=== PATIENT | female | born 1940 | race Asian ===

== ENCOUNTER 2022-12-19 08:52 | Outpatient (CLI) | payer MEDICARE, OTHER ==
[~2022-12-19] VITALS: Ht 149.9 cm; Wt 58.1 kg
[~2022-12-19 08:52] MED LIST: AMLO10TA PO; DOXY150T5 PO; LACT1CAP75 PO; LEVO-65 PO; LISI20TA28 PO; LOPE-190 PO; MECL-231 PO; MELO-100 PO; METF-436 PO; MULT-1133 PO; ROSU10TA2 PO
[2022-12-19] MEDS ORDERED: metoprolol tartrate 1mg/ml inj IV PRN (09:45)
[2022-12-19] MEDS ORDERED: nitroGLYCERIN 0.4mg SUBLingual tab SL PRN (09:45)
[2022-12-19] MEDS ORDERED: aminophylline 250mg/10ml inj. IV PRN (09:45)
[2022-12-19] MEDS ORDERED: normal saline 500ml IV soln 500 ML IV ONE (09:45)
[2022-12-19] MEDS ORDERED: regadenoson 0.4mg/5ml syringe IV ONE (09:45)
[2022-12-19 10:51] VITALS: BP 125/68
[2022-12-19 11:08] VITALS: BP 150/63
[2022-12-19 11:09] VITALS: BP 134/68
[2022-12-19 11:10] VITALS: BP 131/65
[2022-12-19 11:11] VITALS: BP 124/65
[2022-12-19 11:12] VITALS: BP 129/63
[2022-12-20] VITALS (7 sets, daily range): BP systolic 121–133; BP diastolic 57–69
--- NOTE | 2022-12-20 08:15 | NUR ---
pt difficult stick, 18g midline, mid upper right arm, placed by Anna RN PICC Line nurse
[2022-12-20] MEDS ORDERED: regadenoson 0.4mg/5ml syringe IV PRN ×3 (08:35→09:00)
[2022-12-20] MEDS ORDERED: metoprolol tartrate 1mg/ml inj IV PRN ×2 (08:35)
[2022-12-20] MEDS ORDERED: nitroGLYCERIN 0.4mg SUBLingual tab SL PRN ×2 (08:35)
[2022-12-20] MEDS ORDERED: aminophylline 250mg/10ml inj. IV PRN ×2 (08:35)
--- NOTE | 2022-12-20 09:23 | NUR ---
pt plans to go to go to surgery with Dr Melendez today, pending clearance (stress test)
== END 2022-12-20 23:00 | disposition home or self-care (01) ==
LOC: RAD 08:52
PROVIDERS: ATTEND Internal Medicine Cardiovascular Disease
DX: Z01.810 Encounter for preprocedural cardiovascular examination (principal); R94.31 Abnormal electrocardiogram [ECG] [EKG]; I25.2 Old myocardial infarction; M49.86 Spondylopathy in diseases classified elsewhere, lumbar region
CPT/HCPCS: J0280; J2785; J3490; J7040; 93017

== ENCOUNTER 2023-05-16 07:00 | Outpatient (CLI) | payer MEDICARE, OTHER, MEDICAID ==
[~2023-05-16] VITALS: Ht 149.9 cm; Wt 58.1 kg
[~2023-05-16 07:00] MED LIST changes: -DOXY150T5 PO; -LEVO-65 PO; -MELO-100 PO; -ROSU10TA2 PO
[2023-05-16] MEDS ORDERED: BENZ-111 PO (11:21)
[2023-05-16] MEDS ORDERED: BISA-155 PO (11:21)
[2023-05-16] MEDS ORDERED: ALBU90AE INH (11:21)
[2023-05-16] MEDS ORDERED: FERR325T28 PO (11:21)
[2023-05-16] MEDS ORDERED: MAGN400O6 PO (11:21)
[2023-05-16] MEDS ORDERED: FURO-150 PO (11:21)
[2023-05-16] MEDS ORDERED: LOPE2CAP PO (11:21)
[2023-05-16] MEDS ORDERED: ATOR20TA PO (11:21)
[2023-05-16] MEDS ORDERED: SITA25TA3 PO (11:21)
[2023-05-16] MEDS ORDERED: PANT-47 PO (11:21)
[2023-05-16 11:42] LABS: BASOPHILS # (AUTO) 0.1 X10'3 (0-0.2); BASOPHILS % (AUTO) 0.4 % (0-1); EOSINOPHILS # (AUTO) 0.4 X10'3 (0-0.9); EOSINOPHILS % (AUTO) 2.3 % (0-6); LYMPHOCYTES # (AUTO) 2.2 X10'3 (1.1-4.8); LYMPHOCYTES % (AUTO) 11.7 % (21-51); MEAN CORPUSCULAR HEMOGLOBIN 24.5 PG (27.0-31.0); MEAN CORPUSCULAR HGB CONC 31.6 g/dL (33.0-36.5); MEAN CORPUSCULAR VOLUME 77.6 FL (78-98); MEAN PLATELET VOLUME 8.7 FL (7.4-10.4); MONOCYTES # (AUTO) 1.8 X10'3 (0-0.9); MONOCYTES % (AUTO) 9.5 % (2-12); NEUTROPHILS # (AUTO) 14.2 X10'3 (1.8-7.7); NEUTROPHILS % (AUTO) 76.1 % (42-75); PRE OP HEMATOCRIT 41.1 % (35.0-45.0); PRE OP PLATELET COUNT 392 X10'3 (140-440); RED CELL DISTRIBUTION WIDTH 16.2 % (11.5-14.5)
[2023-05-16 12:03] LABS: ALBUMIN 2.6 G/DL (3.4-5.0); ALBUMIN/GLOBULIN RATIO 0.6 (1.1-1.5); ALKALINE PHOSPHATASE 147 IU/L (46-116); BLOOD UREA NITROGEN 19 MG/DL (7-18); BUN/CREATININE RATIO 11.2 (10.0-20.0); CALCIUM 8.7 MG/DL (8.5-10.1); CHLORIDE 105 MMOL/L (99-107); PRE OP ALT 30 U/L (30-65); PRE OP ANION GAP 9 (8-16); PRE OP AST 17 U/L (10-37); PRE OP BILIRUB, TOTAL 0.4 MG/DL (0.0-1.0); PRE OP GLUCOSE 129 MG/DL (70-104); PRE OP SODIUM 139 MMOL/L (135-145); TOTAL CARBON DIOXIDE 24.6 MMOL/L (24-32); TOTAL PROTEIN 6.7 G/DL (6.4-8.2); eGFR 29 ML/MIN
[2023-05-16 14:09] LABS: C-REACTIVE PROTEIN 13.93 MG/DL (0.0-0.5)
[2023-05-16 14:53] LABS: HEMOGLOBIN A1C 6.6 % (4.5-6.2)
[2023-05-20] MEDS ORDERED: ringers solution, lacted 1,000 ML IV SCH (05:00)
[2023-05-20] MEDS ORDERED: cefazolin 2gm/D5W 100mL 100 ML IV ONE (05:30)
[2023-05-20] MEDS ORDERED: famotidine 20mg tablet PO ONE (05:30)
[2023-05-20] MEDS ORDERED: tranexamic acid 650mg tablet PO ONE (05:30)
[2023-05-20] MEDS ORDERED: vancomycin/NS 1 GM in NS 250 ML IV ONE (05:30)
== END 2023-05-16 23:00 | disposition home or self-care (01) ==
LOC: LAB 07:00 → EDSTATUS 05-20 14:30 → LAB 05-22 05:25
PROVIDERS: ATTEND Orthopaedic Surgery
DX: Z01.812 Encounter for preprocedural laboratory examination (principal); T84.59XA Infection and inflammatory reaction due to other internal joint prosthesis, initial encounter; Y83.8 Other surgical procedures as the cause of abnormal reaction of the patient, or of later complication, without mention of misadventure at the time of the procedure; Y92.89 Other specified places as the place of occurrence of the external cause
CPT/HCPCS: 36415; 80053; 83036; 85025; 85651; 86140; 87081; J0690; J3370; J7120

== ENCOUNTER 2024-08-26 06:55 | Inpatient (IN) | payer MEDICARE, OTHER, MEDICAID ==
[2024-08-21 15:14] LABS: BASOPHILS # (AUTO) 0.1 X10'3 (0-0.2); BASOPHILS % (AUTO) 0.8 % (0-1); EOSINOPHILS # (AUTO) 0.7 X10'3 (0-0.9); EOSINOPHILS % (AUTO) 7.5 % (0-6); LYMPHOCYTES # (AUTO) 2.1 X10'3 (1.1-4.8); LYMPHOCYTES % (AUTO) 21.7 % (21-51); MEAN CORPUSCULAR HEMOGLOBIN 27.1 PG (27.0-31.0); MEAN CORPUSCULAR HGB CONC 31.9 g/dL (33.0-36.5); MEAN CORPUSCULAR VOLUME 85.1 FL (78-98); MEAN PLATELET VOLUME 8.5 FL (7.4-10.4); MONOCYTES # (AUTO) 0.6 X10'3 (0-0.9); MONOCYTES % (AUTO) 6.6 % (2-12); NEUTROPHILS # (AUTO) 6.1 X10'3 (1.8-7.7); NEUTROPHILS % (AUTO) 63.4 % (42-75); PRE OP HEMATOCRIT 47.3 % (35.0-45.0); PRE OP HEMOGLOBIN 15.1 g/dL (12.0-16.0); PRE OP PLATELET COUNT 213 X10'3 (140-440); PRE OP WHITE BLOOD COUNT 9.6 10'3 (4.8-10.8); RED BLOOD COUNT 5.57 X10'6 (4.20-5.60); RED CELL DISTRIBUTION WIDTH 15.1 % (11.5-14.5)
[2024-08-21 15:27] LABS: PRE OP PROTIME 10.5 SECONDS (9.0-12.0)
[2024-08-21 15:30] LABS: ALBUMIN 3.8 G/DL (3.4-5.0); ALBUMIN/GLOBULIN RATIO 0.9 (1.1-1.5); ALKALINE PHOSPHATASE 200 IU/L (46-116); BLOOD UREA NITROGEN 16 MG/DL (7-18); BUN/CREATININE RATIO 12.3 (10.0-20.0); CALCIUM 10.1 MG/DL (8.5-10.1); CHLORIDE 106 MMOL/L (99-107); PRE OP ANION GAP 11 (8-16); PRE OP AST 48 U/L (10-37); PRE OP BILIRUB, TOTAL 0.4 MG/DL (0.0-1.0); PRE OP GLUCOSE 111 MG/DL (70-104); PRE OP SODIUM 146 MMOL/L (135-145); TOTAL PROTEIN 8.1 G/DL (6.4-8.2); eGFR 39 ML/MIN
[2024-08-21 15:31] LABS: HEMOGLOBIN A1C 5.9 % (4.5-6.2)
[2024-08-21 15:32] LABS: PRE OP ALT 98 U/L (30-65)
[~2024-08-26] VITALS: Ht 149.9 cm; Wt 65.0 kg
[2024-08-26] VITALS (28 sets, daily range): BP systolic 108–150; BP diastolic 51–76; PULSE 58–81; RESP 8–17; TEMP 97.1–98.1; O2SAT 91–100
[2024-08-26] MEDS: famotidine 20mg tablet PO ONE (05:30)
[~2024-08-26 06:55] MED LIST changes: +APIX5TAB3 PO; +ATOR20TA PO; +CELE-127 PO; +DAPA10TA PO; +FERR325T28 PO; +FURO-150 PO; -LACT1CAP75 PO; +LISI10TA27 PO; -LISI20TA28 PO; -LOPE-190 PO; -MECL-231 PO; -METF-436 PO; -MULT-1133 PO; +MULTI-VITAMIN PO; +PANT-47 PO; +POTA-192 PO; +PROBIOTIC PO; +SITA25TA3 PO; +VANC125C11 PO
[2024-08-26] MEDS: cefazolin 2gm/D5W 100mL 100 ML IV ONE (07:15)
[2024-08-26] MEDS ORDERED: fentaNYL/PF 50MCG/1 ML 2ML syringe ONE ×3 (08:49→11:16)
[2024-08-26] MEDS ORDERED: midazolam 1 mg/ML 2ml injection ONE (08:49)
[2024-08-26] MEDS ORDERED: dexamethasone sod phosphate 4mg/ml inj. ONE (08:50)
[2024-08-26] MEDS ORDERED: sevoflurane 250ml liquid IH ONE (08:50)
[2024-08-26] MEDS ORDERED: ondansetron/PF 4mg/2ml inj ONE (08:50)
[2024-08-26] MEDS ORDERED: propofol inj 20 ML IV ONE (08:50)
[2024-08-26] MEDS ORDERED: LIDOcaine 2% (20mg/ml) 5ml vial ONE (08:50)
[2024-08-26] MEDS ORDERED: acetaminophen 1,000mg/100ml IV 100 ML IV ONE (08:51)
[2024-08-26] MEDS ORDERED: ipratropium/albuterol 3ml nebule IH PRN (09:40)
[2024-08-26] MEDS ORDERED: morphine 4 MG/ML inj SYRINge IV PRN (09:40)
[2024-08-26] MEDS ORDERED: hydrALAZINE 20mg/ml inj. IV PRN (09:40)
[2024-08-26] MEDS ORDERED: ondansetron/PF 4mg/2ml inj IV PRN ×2 (09:40→12:50)
[2024-08-26] MEDS ORDERED: fentaNYL/PF 50MCG/1 ML 2ML syringe IV PRN ×2 (09:40)
[2024-08-26] MEDS ORDERED: morphine 2 MG/ML inj. syringe IV PRN (09:40)
[2024-08-26] MEDS: methylene blue (5mg/ml) 50mg/10ml ampul IV ONE (12:33)
[2024-08-26] MEDS: BUPIVACAINE liposomal/PF 13.3 MG/ML vial IM ONE ×2 (12:33)
[2024-08-26] MEDS: BUPIVAcaine/PF 5 mg/ml 10ml ONE (12:33)
[2024-08-26] MEDS: BUPIVAcaine 2.5mg/ml inj 50ml vial (contains preservative) ONE (12:33)
[2024-08-26] MEDS: ringers solution, lacted 1,000 ML IV SCH ×3 (14:00→14:08)
[2024-08-26] MEDS ORDERED: DEXTROSE 15 GM of carb/4 tabs (each vial/BOTTLE has 4 tablets) PO PRN ×2 (15:00)
[2024-08-26] MEDS ORDERED: dextrose 50%-water 50ml dispensing syringe IV PRN ×2 (15:00)
[2024-08-26] MEDS ORDERED: glucagon, human recombinant 1mg kit SUBCUT PRN (15:00)
[2024-08-26] MEDS: ceFAZolin/D5W- 1GM premix 50 ML IV SCH (16:30)
[2024-08-26] MEDS: INSULIN LISPRO 100 UNIT/ML INSULN.PEN MULTI-DOSE SQ SCH (19:47)
[2024-08-26] MEDS: atorvastatin 20mg tablet PO SCH (21:07)
[2024-08-26] MEDS: HYDROcodone/acetaminophen 5mg/325mg tablet PO PRN (21:09)
[2024-08-26] MEDS: insulin glargine (Lantus) pen - multi-dose SQ SCH (21:23)
[2024-08-27] VITALS (8 sets, daily range): BP systolic 114–169; BP diastolic 47–79; PULSE 61–86; RESP 14–18; TEMP 97–98.6; O2SAT 90–99
[2024-08-27] MEDS: DAPAGLIFLOZIN 10MG TABLET PO SCH (11:39)
[2024-08-27] MEDS: linagliptin 5mg tablet PO SCH (11:40)
[2024-08-27] MEDS: lisinopril 10 MG tablet PO SCH (11:51)
[2024-08-27] MEDS: furosemide 20MG tablet PO SCH (11:51)
[2024-08-27] MEDS: amLODIPine 5mg tablet PO SCH (11:51)
[2024-08-27 14:08] LABS: ALBUMIN 2.2 G/DL (3.4-5.0); ANION GAP 8 (8-16); BLOOD UREA NITROGEN 18 MG/DL (7-18); BUN/CREATININE RATIO 15.9 (10.0-20.0); CALCIUM 8.7 MG/DL (8.5-10.1); CHLORIDE 108 MMOL/L (99-107); CREATININE 1.13 MG/DL (0.40-0.90); GLUCOSE 172 MG/DL (70-104); SODIUM 138 MMOL/L (135-145); TOTAL CARBON DIOXIDE 21.8 MMOL/L (24-32); eCRCL 26 ML/MIN; eGFR 46 ML/MIN
[2024-08-28] VITALS (9 sets, daily range): BP systolic 114–135; BP diastolic 52–86; PULSE 73–99; RESP 12–20; TEMP 97.6–99.3; O2SAT 89–95
[2024-08-28 04:36] LABS: BASOPHILS # (AUTO) 0.1 X10'3 (0-0.2); BASOPHILS % (AUTO) 0.5 % (0-1); EOSINOPHILS # (AUTO) 0.1 X10'3 (0-0.9); EOSINOPHILS % (AUTO) 0.8 % (0-6); HEMATOCRIT 29.6 % (35.0-45.0); HEMOGLOBIN 9.4 g/dl (12.0-16.0); LYMPHOCYTES # (AUTO) 1.8 X10'3 (1.1-4.8); LYMPHOCYTES % (AUTO) 16.6 % (21-51); MEAN CORPUSCULAR HEMOGLOBIN 27.1 PG (27.0-31.0); MEAN CORPUSCULAR HGB CONC 31.7 g/dL (33.0-36.5); MEAN CORPUSCULAR VOLUME 85.3 FL (78-98); MEAN PLATELET VOLUME 8.5 FL (7.4-10.4); MONOCYTES # (AUTO) 1.1 X10'3 (0-0.9); MONOCYTES % (AUTO) 10.1 % (2-12); NEUTROPHILS # (AUTO) 7.8 X10'3 (1.8-7.7); PLATELET COUNT 194 X10'3 (140-440); RED BLOOD COUNT 3.47 X10'6 (4.20-5.60); RED CELL DISTRIBUTION WIDTH 15.5 % (11.5-14.5); WHITE BLOOD COUNT 10.8 X10'3 (4.5-11.0)
[2024-08-28 09:21] LABS: ALBUMIN 2.5 G/DL (3.4-5.0); ANION GAP 6 (8-16); BLOOD UREA NITROGEN 21 MG/DL (7-18); BUN/CREATININE RATIO 16.9 (10.0-20.0); CALCIUM 8.6 MG/DL (8.5-10.1); CHLORIDE 107 MMOL/L (99-107); CREATININE 1.24 MG/DL (0.40-0.90); GLUCOSE 185 MG/DL (70-104); POTASSIUM 3.6 MMOL/L (3.5-5.1); SODIUM 141 MMOL/L (135-145); TOTAL CARBON DIOXIDE 27.9 MMOL/L (24-32); eCRCL 23 ML/MIN; eGFR 41 ML/MIN
[2024-08-28] MEDS: apixaban 5mg tablet PO SCH (09:52)
[2024-08-29 06:32] LABS: BASOPHILS # (AUTO) 0.1 X10'3 (0-0.2); BASOPHILS % (AUTO) 0.7 % (0-1); EOSINOPHILS # (AUTO) 0.4 X10'3 (0-0.9); EOSINOPHILS % (AUTO) 4.5 % (0-6); HEMATOCRIT 30.9 % (35.0-45.0); HEMOGLOBIN 9.9 g/dl (12.0-16.0); LYMPHOCYTES # (AUTO) 2.2 X10'3 (1.1-4.8); LYMPHOCYTES % (AUTO) 24.3 % (21-51); MEAN CORPUSCULAR HEMOGLOBIN 27.2 PG (27.0-31.0); MEAN CORPUSCULAR HGB CONC 32.1 g/dL (33.0-36.5); MEAN CORPUSCULAR VOLUME 84.8 FL (78-98); MEAN PLATELET VOLUME 8.7 FL (7.4-10.4); MONOCYTES # (AUTO) 0.8 X10'3 (0-0.9); NEUTROPHILS # (AUTO) 5.6 X10'3 (1.8-7.7); NEUTROPHILS % (AUTO) 61.5 % (42-75); PLATELET COUNT 215 X10'3 (140-440); RED BLOOD COUNT 3.65 X10'6 (4.20-5.60); RED CELL DISTRIBUTION WIDTH 15.3 % (11.5-14.5); WHITE BLOOD COUNT 9.1 X10'3 (4.5-11.0)
[2024-08-29 07:00] VITALS: BP 125/57; PULSE 78; RESP 16; TEMP 97.8; O2SAT 92
[2024-08-29 08:00] VITALS: RESP 16; O2SAT 92
[2024-08-29 08:18] VITALS: PULSE 88; RESP 14; O2SAT 92
[2024-08-29 09:22] LABS: ALBUMIN 2.4 G/DL (3.4-5.0); ANION GAP 6 (8-16); BLOOD UREA NITROGEN 19 MG/DL (7-18); BUN/CREATININE RATIO 17.6 (10.0-20.0); CALCIUM 8.6 MG/DL (8.5-10.1); CHLORIDE 106 MMOL/L (99-107); CREATININE 1.08 MG/DL (0.40-0.90); GLUCOSE 121 MG/DL (70-104); POTASSIUM 3.7 MMOL/L (3.5-5.1); SODIUM 141 MMOL/L (135-145); TOTAL CARBON DIOXIDE 28.8 MMOL/L (24-32); eCRCL 27 ML/MIN; eGFR 48 ML/MIN
[2024-08-29 10:00] VITALS: BP 114/54; PULSE 80; RESP 18; TEMP 97.3; O2SAT 95
== END 2024-08-29 14:34 | DRG 580 ==
LOC: PAS 06:55 → SUR 3N 12:46 → UNDOADMOB 12:46 → SUR 3N 12:49 → OBSVTOIN 12:49
PROVIDERS: ADMIT Surgery; ATTEND Surgery
PROC: 0HTU0ZZ Resection of Left Breast, Open Approach (ICD-10-PCS; principal; 2024-08-25)
PROC: 07B60ZZ Excision of Left Axillary Lymphatic, Open Approach (ICD-10-PCS; 2024-08-25)
PROC: 3E0T3BZ Introduction of Anesthetic Agent into Peripheral Nerves and Plexi, Percutaneous Approach (ICD-10-PCS; 2024-08-25)
DX: C50.812 Malignant neoplasm of overlapping sites of left female breast (principal); D62 Acute posthemorrhagic anemia; Z96.653 Presence of artificial knee joint, bilateral; E11.22 Type 2 diabetes mellitus with diabetic chronic kidney disease; I12.9 Hypertensive chronic kidney disease with stage 1 through stage 4 chronic kidney disease, or unspecified chronic kidney disease; N18.9 Chronic kidney disease, unspecified; Z79.899 Other long term (current) drug therapy
CPT/HCPCS: 80053; 82948; 83036; 85610; 85730; 86885; 86900; 86901; 94760; A4615; C9290; J0665; J0690; J1815; J7120; 36415; 80048; 85025; 87081; 88305; 88307; 97116; 97161; 97530; A4215; A4618; A6213; A6253; A6258; A6449; A7000; C9250; G0378; J0131; J1100; J2250; J2405; J2704; J3010; J3490; Q9968